=== PATIENT | female | born 1945 | race Caucasian/White ===

== ENCOUNTER 2020-03-19 08:20 | Day surgery (SDC) | payer MEDICARE ==
[~2020-03-19] VITALS: Ht 157.5 cm; Wt 92.6 kg
[2020-03-19] MEDS ORDERED: CHLORHEXIDINE 15 ML UDC MM STA (09:00)
[2020-03-19] MEDS ORDERED: LACTATED RINGERS 1,000 ML IV SCH (09:00)
[2020-03-19 09:01] VITALS: BP 136/76
[2020-03-19] MEDS ORDERED: PARO20TA4 PO (09:10)
[2020-03-19] MEDS ORDERED: TRAZ-175 PO (09:10)
[2020-03-19] MEDS ORDERED: SUCCINYLCHOLINE 20 MG/ML, 10ML ONE (10:07)
[2020-03-19] MEDS ORDERED: PROPOFOL 10 MG/ML, 20ML ONE (10:07)
[2020-03-19] MEDS ORDERED: DEXAMETHASONE 4 MG/ML, 1ML ONE (10:07)
[2020-03-19] MEDS ORDERED: SUGAMMADEX 200 MG/2 ML IVPush ONE (10:07)
[2020-03-19] MEDS ORDERED: ONDANSETRON 2MG/ML, 2ML ONE (10:07)
[2020-03-19] MEDS ORDERED: LABETALOL 5MG/ML, 20ML IV PRN (10:30)
[2020-03-19] MEDS ORDERED: MEPERIDINE/PF 25MG/0.5ML IVPush PRN (10:30)
[2020-03-19] MEDS ORDERED: HYDROmorphone 2 MG/ML, 1ML IVPush PRN (10:30)
[2020-03-19] MEDS ORDERED: OXYcodone 5 MG/5 ML ORAL.SOL UDC PO PRN (10:30)
[2020-03-19] MEDS ORDERED: KETOROLAC 30 MG/1 ML IV PRN (10:30)
[2020-03-19] MEDS ORDERED: FENTANYL PF 100 MCG/2ML IV PRN (10:30)
[2020-03-19] MEDS ORDERED: ALBUTEROL SULFATE 2.5 MG/3 ML NPPB PRN (10:30)
[2020-03-19] MEDS ORDERED: hydrALAzine 20 MG/ML, 1ML IV PRN (10:30)
[2020-03-19] MEDS ORDERED: DIAZEPAM 5 MG/ML, 2ML IVPush PRN (10:30)
[2020-03-19] MEDS ORDERED: ACETAMINOPHEN 325 MG TABLET PO PRN (10:30)
[2020-03-19] MEDS ORDERED: PROMETHAZINE 25 MG/ML, 1ML IV PRN (10:30)
[2020-03-19] MEDS ORDERED: OMNIPAQUE 350 MG/ML, 50 ML BOTTLE ONE (10:47)
== END 2020-03-19 11:45 | disposition home or self-care (01) ==
LOC: OUT 08:20
PROVIDERS: ATTEND Internal Medicine Gastroenterology
DX: K80.50 Calculus of bile duct without cholangitis or cholecystitis without obstruction (principal); I10 Essential (primary) hypertension; E78.5 Hyperlipidemia, unspecified; Z20.828 Contact with and (suspected) exposure to other viral communicable diseases; E11.9 Type 2 diabetes mellitus without complications; Z79.899 Other long term (current) drug therapy; Z87.891 Personal history of nicotine dependence; Z98.890 Other specified postprocedural states
CPT/HCPCS: 43264; 43275; 74328; 87635; 93005; C1769; J0330; J1100; J2405; J2704; J7120; Q9967